=== PATIENT | male | born 1995 | race Caucasian/White ===

== ENCOUNTER → 2017-12-03 14:37 | Outpatient (CLI) | payer OTHER, SELFPAY ==
--- NOTE | 2017-12-03 | DI.RAD.S_ITS ---
PROCEDURE: XR CHEST 2V INDICATIONS: 22 year-old male with pneumonia symptoms. TECHNIQUE: 2 views of the chest were acquired. COMPARISON: None. FINDINGS: Surgical changes and devices: None. Lungs and pleura: No pleural effusions or pneumothorax. Lungs are clear. Mediastinum: Mediastinal contours are normal. Heart size is normal. Bones and chest wall: No suspicious bony abnormalities. Soft tissues appear unremarkable. IMPRESSION: No acute cardiopulmonary disease. Dictated by: Ede Miranda M.D. on 12/03/2017 at 15:07 Approved by: Ede Miranda M.D. on 12/03/2017 at 15:08
== END ==
PROVIDERS: PCP Family Medicine; Visit Provider Family Medicine
DX: J18.9 Pneumonia, unspecified organism (principal)
CPT/HCPCS: 71046